=== PATIENT | male | born 1950 | race Caucasian/White ===

== ENCOUNTER 2016-05-28 20:20 | Emergency (ER) | payer MEDICARE, OTHER ==
[2016-05-28] MEDS: ONDANSETRON HCL/PF 4 MG/ 2ML VIAL IVP ONE (20:58)
[2016-05-28] MEDS: 0.9 % SODIUM CHLORIDE 1,000 ML IV ONE ×3 (20:58→22:42)
--- NOTE | 2016-05-28 21:00 | ED Physician Documentation ---
General Adult - HISTORIAN Historian: patient, spouse - HPI Stated Complaint: weakness Chief Complaint: General Adult Additional Information: Vomited twice and had diarrhea on 05/26. Has been retching since. Drinking lots of water. Has not checked his blood sugar or taken any insuling because he wasn' t eating. Has cramping lower abdominal pain. - ROS CONST: weakness. denies: fever GI/: denies: problems urinating - PAST HX Past History: other (IDDM, DJD, HTN) Allergies/Adverse Reactions: Allergies Allergy/AdvReac Type Severity Reaction Status Date / Time No Known Allergies Allergy Verified 05/28/16 20:49 Home Medications: Ambulatory Orders Medication Instructions Recorded Peg 3350/Na Sulf,Bicarb,Cl/KCl 240 ml PO Q15M #1 soln.recon 10/04/15 [Golytely Solution] Fluticasone/Salmeterol [Advair 05/28/16 250-50 Diskus] Ibuprofen [Ibuprofen] 05/28/16 Insulin Glargine,Hum.rec.anlog 05/28/16 [Lantus Solostar] Metoprolol Succinate [Toprol XL] 100 mg PO 05/28/16 - SOCIAL HX Smoking History: non-smoker - FAMILY HX Family History: No - VITAL SIGNS Vital Signs: Vital Signs Temp Pulse Resp BP Pulse Ox 98.5 F 123 H 26 H 138/77 97 05/28/16 20:46 05/28/16 20:46 05/28/16 20:46 05/28/16 20:46 05/28/16 20:46 - REVIEWED ASSESSMENTS Nursing Assessment Reviewed: Yes Vitals Reviewed: Yes Progress - Progress Progress: 2205, ABG's: pH 7.05; pC)2 <15; pO2>125; HCO3 <4.2; BE -24.4; TCO2 <4.7; SAO2 97 % 2219, spoke with Ashlie Thiokol Operator at [facility]. 2246, Accepted for admit to [facility] per Dr. Thomas. To receive insulin drip at 4 units/hour; Bicarb drip (150 shamika/1000 sterile water) or alternatively , 2 amps bicarb. Questioned/discussed sterile water infusion and concern for survival of blood cells. Will give alternative of 2 amps bicarb before transport. ED Results Lab/Radiology - Orders Orders: ED Orders Category Date Time Status Place Saline Lock/IV Now Care 05/28/16 20:29 Active AMYLASE Routine Lab 05/28/16 20:49 Received CBC/PLATELET/DIFF Routine Lab 05/28/16 20:49 Received CMP Routine Lab 05/28/16 20:49 Received URINALYSIS Routine Lab 05/28/16 Ordered 0.9 % Sodium Chloride [Normal Saline] 1,000 ml Med 05/28/16 20:29 Active IV Q1H Ondansetron HCl/Pf [Zofran 4 mg/2 ml] Med 05/28/16 20:44 Discontinued 4 mg IVP NOW ONE General Adult Physical Exam - PHYSICAL EXAM GENERAL APPEARANCE: moderate distress (Appears tired, pale. Tremor.) EENT: eye inspection normal, pharynx normal, TM's nml, hearing deficit, other ( poor dentition, many absent teeth) NECK: normal inspection, supple RESPIRATORY: no resp distress, chest non-tender, breath sounds normal CVS: reg rate & rhythm, murmur (2-3/6 quintero systolic murmur) ABDOMEN: soft, normal bowel sounds, no distension, non-tender RECTAL: deferred BACK: normal inspection SKIN: warm/dry, pallor (mild) NEURO: CN's nml as tested, motor nml, sensation nml Discharge Clincal Impression: Diabetic ketoacidosis Home Medications: Ambulatory Orders Peg 3350/Na Sulf,Bicarb,Cl/KCl [Golytely Solution] 240 ml PO Q15M #1 soln.recon 10/04/15 Fluticasone/Salmeterol [Advair 250-50 Diskus] 05/28/16 Ibuprofen [Ibuprofen] 05/28/16 Insulin Glargine,Hum.rec.anlog [Lantus Solostar] 05/28/16 Metoprolol Succinate [Toprol XL] 100 mg PO 05/28/16 Condition: Critical Disposition: 02 XFER SHT-TRM HOSP Decision to Admit: NO Decision Time: 22:47
[2016-05-28 21:06] LABS: eGFR (African) 43; eGFR (Non-African) 36
[2016-05-28 21:21] LABS: BASOPHILS % 0.2 (0.0-1.5); EOSINOPHILS % 0.1 % (0.0-6.8); LYMPHOCYTES # 1.1 # k/uL (0.6-4.0); MEAN CORPUSCULAR HEMOGLOBIN 27.2 pg (28.0-34.0); MONOCYTES # 0.5 # k/uL (0.0-0.9); MONOCYTES % 3.2 % (0.0-11.0); NEUTROPHILS # 12.7 # k/uL (1.4-7.7)
[2016-05-28] MEDS ORDERED: INSULIN REGULAR, HUMAN 100 UNIT/ML 3ML VIAL ONE (21:23)
[2016-05-28] MEDS: INSULIN REGULAR, HUMAN 100 UNIT/ML 3ML VIAL IV ONE ×2 (21:25→22:16)
[2016-05-28] MEDS: SODIUM BICARBONATE 50 MEQ/50 ML SYRINGE IV ONE (22:46)
[2016-05-28] MEDS ORDERED: INSULIN REGULAR, HUMAN 100 UNIT in 0.9 % SODIUM CHLORIDE 100 ML IV ONE ×2 (22:46)
[2016-05-28] MEDS ORDERED: 0.9 % SODIUM CHLORIDE 100 ML IV ONE (22:49)
[2016-05-28] MEDS: 0.9 % SODIUM CHLORIDE 1,000 ML IV SCH (23:00)
[2016-05-28] MEDS: INSULIN REGULAR, HUMAN 100 UNIT in 0.9 % SODIUM CHLORIDE 100 ML IV ONE ×2 (23:10)
[2016-05-28 23:31] VITALS: BP 111/71
[2016-05-29 06:09] LABS: OCCULT BLOOD,URINE 1+ (NEGATIVE); UROBILINOGEN URINE 0.2 Eu (0.2-1.0)
== END 2016-05-28 23:15 | disposition short-term general hospital (02) ==
LOC: ED 20:20
DX: E13.10 Other specified diabetes mellitus with ketoacidosis without coma (principal)
CPT/HCPCS: 80048; 80053; 82150; 85025; J1815; J2405; J7030; 36600; 81002; 96365; 96375; 99284; S1016